=== PATIENT | male | born 1990 | race Caucasian/White ===

== ENCOUNTER 2017-01-04 12:29 | Emergency (ER) | payer SELFPAY ==
[2017-01-04] MEDS ORDERED: Benzocaine 20% Topical Spray UD MUCMEM ONE (13:00)
[2017-01-04] MEDS ORDERED: Lidocaine 2% Viscous Solution 15 ML Cup PO ONE (13:00)
--- NOTE | 2017-01-04 13:00 | EDM.PDOC ---
ED HPI GENERAL MEDICAL PROBLEM - General Chief Complaint: ENT Problem Stated Complaint: RT EAR HURTS Time Seen by Provider: 01/04/17 12:55 Source of Information: Reports: Patient History Limitations: Reports: No Limitations - History of Present Illness INITIAL COMMENTS - FREE TEXT/NARRATIVE: HISTORY AND PHYSICAL: History of present illness: Patient is a 26-year-old male presents to the emergency room today with complaints of right ear, jaw, dental pain for several days. Patient does have multiple dental caries noted which he says he does not see a dentist for but has taken antibiotics in the past. Denies any fever, chills, nausea, vomiting or abdominal pain. As any chest pain, dyspnea, or shortness of breath. Review of systems: As per history of present illness and below otherwise all systems reviewed and negative. Past medical history: As per history of present illness and as reviewed below otherwise noncontributory. Surgical history: As per history of present illness and as reviewed below otherwise noncontributory. Social history: No reported history of drug or alcohol abuse. Family history: As per history of present illness and as reviewed below otherwise noncontributory. Physical exam: Gen.: Nontoxic appearing 26-year-old male. Able to speak in full sentences without shortness of breath. Alert and oriented HEENT: Atraumatic, normocephalic, pupils reactive, negative for conjunctival pallor or scleral icterus, mucous membranes moist, throat clear, neck supple, nontender, trachea midline. Multiple dental caries noted. Erythema and swelling noted to tooth #31 through 29, with tenderness to the gumline. Lungs: Clear to auscultation, breath sounds equal bilaterally, chest nontender. Heart: S1S2, regular, negative for clicks, rubs, or JVD. Abdomen: Soft, nondistended, nontender. Negative for masses or hepatosplenomegaly. Negative for costovertebral tenderness. Pelvis: Stable nontender. Genitourinary: Deferred. Rectal: Deferred. Extremities: Atraumatic, negative for cords or calf pain. Neurovascular unremarkable. Neuro: Awake, alert, oriented. Cranial nerves II through XII unremarkable. Cerebellum unremarkable. Motor and sensory unremarkable throughout. Exam nonfocal. Diagnostics: [] Therapeutics: Dental balls Impression: Dental abscess, dental caries Plan: Please take antibiotic as prescribed. Use the dental balls that have been provided for you for discomfort. In addition please take Tylenol and/or ibuprofen for pain and discomfort. Follow-up with the dentist in the next 1-2 days. May return to the ED as needed as discussed. Definitive disposition and diagnosis as appropriate pending reevaluation and review of above. Duration: Day(s): (3) right jaw Pain Score (Numeric/FACES): 7 - Related Data Allergies Allergy/AdvReac Type Severity Reaction Status Date / Time No Known Allergies Allergy Verified 01/04/17 12:47 Home Meds: Home Meds . [No Known Home Meds] 01/04/17 [History] Past Medical History - Past Health History Medical/Surgical History: Denies Medical/Surgical History - Past Surgical History GI Surgical History: Reports: Appendectomy Social & Family History - Family History Family Medical History: Noncontributory - Tobacco Use Smoking Status *Q: Never Smoker - Recreational Drug Use Recreational Drug Use: No ED ROS GENERAL - Review of Systems Review Of Systems: ROS reveals no pertinent complaints other than HPI. ED EXAM, GENERAL - Physical Exam Exam: See Below (See dictation) Course - Vital Signs Last Recorded V/S: Last Vital Signs Temp 36.6 C 01/04/17 12:32 Pulse 65 01/04/17 12:32 Resp 18 01/04/17 12:32 BP 120/73 01/04/17 12:32 Pulse Ox 96 01/04/17 12:32 - Orders/Labs/Meds Orders: Active Orders 24 hr Category Date Time Status Benzocaine [Hurricaine One 20%] Med 01/04/17 13:00 Once 2 each MUCMEM ONETIME ONE Lidocaine 2% [Xylocaine 2% Viscous] Med 01/04/17 13:00 Once 15 ml PO ONETIME ONE Medication Orders Benzocaine (Hurricaine One 20%) 2 each MUCMEM ONETIME ONE Stop: 01/04/17 13:01 Lidocaine HCl (Xylocaine 2% Viscous) 15 ml PO ONETIME ONE Stop: 01/04/17 13:01 Meds: Medications Generic Name Dose Route Start Last Admin Trade Name Freq PRN Reason Stop Dose Admin Benzocaine 2 each 01/04/17 13:00 Hurricaine One 20% MUCMEM 01/04/17 13:01 ONETIME ONE Lidocaine HCl 15 ml 01/04/17 13:00 Xylocaine 2% Viscous PO 01/04/17 13:01 ONETIME ONE Departure - Departure Time of Disposition: 13:06 Disposition: Home, Self-Care 01 Condition: Good Clinical Impression: Dental abscess - Discharge Information Referrals: PCP,None [Primary Care Provider] - Forms: ED Department Discharge Additional Instructions: The following information is given to patients seen in the emergency department who are being discharged to home. This information is to outline your options for follow-up care. We provide all patients seen in our emergency department with a follow-up referral. The need for follow-up, as well as the timing and circumstances, are variable depending upon the specifics of your emergency department visit. If you don't have a primary care physician on staff, we will provide you with a referral. We always advise you to contact your personal physician following an emergency department visit to inform them of the circumstance of the visit and for follow-up with them and/or the need for any referrals to a consulting specialist. The emergency department will also refer you to a specialist when appropriate. This referral assures that you have the opportunity for followup care with a specialist. All of these measure are taken in an effort to provide you with optimal care, which includes your followup. Under all circumstances we always encourage you to contact your private physician who remains a resource for coordinating your care. When calling for followup care, please make the office aware that this follow-up is from your recent emergency room visit. If for any reason you are refused follow-up, please contact the [facility] emergency department at and ask to speak to the emergency department charge nurse. Primary care- Internal Medicine and Family [address] [id number] Please take antibiotic as prescribed. Use the dental balls that have been provided for you for discomfort. Please take Volteran for pain, do not take additional NSAIDs such as Ibuprofen or Aleve with this medication. In addition you may take Tylenol pain and discomfort as needed. Follow-up with the dentist in the next 1-2 days. May return to the ED as needed as discussed. - My Orders Last 24 Hours: My Active Orders 01/04/17 13:00 Benzocaine [Hurricaine One 20%] 2 each MUCMEM ONETIME ONE Lidocaine 2% [Xylocaine 2% Viscous] 15 ml PO ONETIME ONE - Assessment/Plan Last 24 Hours: My Active Orders 01/04/17 13:00 Benzocaine [Hurricaine One 20%] 2 each MUCMEM ONETIME ONE Lidocaine 2% [Xylocaine 2% Viscous] 15 ml PO ONETIME ONE
[2017-01-04 13:23] VITALS: BP 130/77
== END 2017-01-04 13:21 | disposition home or self-care (01) ==
LOC: MW.ED 12:29
DX: K04.7 Periapical abscess without sinus (principal); K02.9 Dental caries, unspecified; Z90.49 Acquired absence of other specified parts of digestive tract
CPT/HCPCS: 99282; A9270; 99283

== ENCOUNTER 2017-01-19 09:07 | Emergency (ER) | payer OTHER ==
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
[2017-01-19 10:19] VITALS: BP 124/60
== END 2017-01-19 10:10 | disposition home or self-care (01) ==
LOC: MW.ED 09:07
DX: T59.891A Toxic effect of other specified gases, fumes and vapors, accidental (unintentional), initial encounter (principal); T24.411A Corrosion of unspecified degree of right thigh, initial encounter; Z90.49 Acquired absence of other specified parts of digestive tract; Y92.69 Other specified industrial and construction area as the place of occurrence of the external cause; Y99.0 Civilian activity done for income or pay
CPT/HCPCS: 99283

== ENCOUNTER 2017-03-21 16:55 | Emergency (ER) | payer SELFPAY ==
[2017-03-21] MEDS ORDERED: cefTRIAXone 1,000 MG in Lidocaine 1% 4 ML IM ONE (18:28)
--- NOTE | 2017-03-21 18:28 | EDM.PDOC ---
ED HPI GENERAL MEDICAL PROBLEM - General Chief Complaint: ENT Problem Stated Complaint: PT HAS TOOTHACHE Time Seen by Provider: 03/21/17 18:26 Source of Information: Reports: Patient - History of Present Illness INITIAL COMMENTS - FREE TEXT/NARRATIVE: HISTORY AND PHYSICAL: History of present illness: []Patient with history of dental pain presents with 6 out of 10 pain on the right lower jaw radiating to the right ear, keeping him awake at night he has poor dentition does follow with dentist unavailable he did have 1 tooth pulled 2 months prior he has multiple teeth that need to be pulled severe decay on the right lower jawline in the molar distribution No fever nausea vomiting chills sweats no drooling, potato voice or trismus Review of systems: As per history of present illness and below otherwise all systems reviewed and negative. Past medical history: As per history of present illness and as reviewed below otherwise noncontributory. Surgical history: As per history of present illness and as reviewed below otherwise noncontributory. Social history: No reported history of drug or alcohol abuse. Family history: As per history of present illness and as reviewed below otherwise noncontributory. Physical exam: HEENT: Atraumatic, normocephalic, pupils reactive, negative for conjunctival pallor or scleral icterus, mucous membranes moist, throat clear, neck supple, nontender, trachea midline. Dentition tenderness along lower jawline consistent early abscess Lungs: Clear to auscultation, breath sounds equal bilaterally, chest nontender. Heart: S1S2, regular, negative for clicks, rubs, or JVD. Abdomen: Soft, nondistended, nontender. Negative for masses or hepatosplenomegaly. Negative for costovertebral tenderness. Pelvis: Stable nontender. Genitourinary: Deferred. Rectal: Deferred. Extremities: Atraumatic, negative for cords or calf pain. Neurovascular unremarkable. Neuro: Awake, alert, oriented. Cranial nerves II through XII unremarkable. Cerebellum unremarkable. Motor and sensory unremarkable throughout. Exam nonfocal. 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 right lower Pain Score (Numeric/FACES): 5 - Related Data Allergies Allergy/AdvReac Type Severity Reaction Status Date / Time No Known Allergies Allergy Verified 03/21/17 17:15 Home Meds: Home Meds . [No Known Home Meds] 03/21/17 [History] Past Medical History - Past Health History Medical/Surgical History: Denies Medical/Surgical History - Infectious Disease History Infectious Disease History: Reports: Mononucleosis - Past Surgical History GI Surgical History: Reports: Appendectomy Social & Family History - Family History Family Medical History: Noncontributory - Tobacco Use Smoking Status *Q: Never Smoker Second Hand Smoke Exposure: No - Caffeine Use Caffeine Use: Reports: Soda Caffeine Use Comment: 2-3drinks each/day - Recreational Drug Use Recreational Drug Use: No ED ROS GENERAL - Review of Systems Review Of Systems: ROS reveals no pertinent complaints other than HPI. ED EXAM, GENERAL - Physical Exam Exam: See Below Course - Vital Signs Last Recorded V/S: Last Vital Signs Temp 100.0 F 03/21/17 17:16 Pulse 95 03/21/17 17:16 Resp 18 03/21/17 17:16 BP 125/65 03/21/17 17:16 Pulse Ox 96 03/21/17 17:16 - Orders/Labs/Meds Orders: Active Orders 24 hr Category Date Time Status cefTRIAXone [Rocephin] 1,000 mg Med 03/21/17 18:28 Ordered Lidocaine 1% [Xylocaine-MPF 1%] 4 ml IM ONETIME Departure - Departure Time of Disposition: 18:28 Disposition: Home, Self-Care 01 Condition: Good Clinical Impression: Pain, dental - Discharge Information Referrals: PCP,None [Primary Care Provider] - Forms: ED Department Discharge Additional Instructions: Medication as prescribed Follow-up with dentist tomorrow as planned The following information is given to patients seen in the emergency department who are being discharged to home. This information is to outline your options for follow-up care. We provide all patients seen in our emergency department with a follow-up referral. The need for follow-up, as well as the timing and circumstances, are variable depending upon the specifics of your emergency department visit. If you don't have a primary care physician on staff, we will provide you with a referral. We always advise you to contact your personal physician following an emergency department visit to inform them of the circumstance of the visit and for follow-up with them and/or the need for any referrals to a consulting specialist. The emergency department will also refer you to a specialist when appropriate. This referral assures that you have the opportunity for follow-up care with a specialist. All of these measure are taken in an effort to provide you with optimal care, which includes your follow-up. Under all circumstances we always encourage you to contact your private physician who remains a resource for coordinating your care. When calling for follow-up care, please make the office aware that this follow-up is from your recent emergency room visit. If for any reason you are refused follow-up, please contact the [facility] emergency department at and asked to speak to the emergency department charge nurse. - My Orders Last 24 Hours: My Active Orders 03/21/17 18:28 cefTRIAXone [Rocephin] 1,000 mg Lidocaine 1% [Xylocaine-MPF 1%] 4 ml IM ONETIME - Assessment/Plan Last 24 Hours: My Active Orders 03/21/17 18:28 cefTRIAXone [Rocephin] 1,000 mg Lidocaine 1% [Xylocaine-MPF 1%] 4 ml IM ONETIME
[2017-03-21 19:00] VITALS: BP 119/63
== END 2017-03-21 19:02 | disposition home or self-care (01) ==
LOC: MW.ED 16:55
DX: K04.7 Periapical abscess without sinus (principal)
CPT/HCPCS: 96372; 99282; J0696; 99281

== ENCOUNTER 2017-04-03 03:58 | Emergency (ER) | payer SELFPAY ==
--- NOTE | 2017-04-03 04:09 | EDM.PDOC ---
ED HPI GENERAL MEDICAL PROBLEM - General Chief Complaint: Upper Extremity Injury/Pain Stated Complaint: FELL AND HURT LEFT ARM Time Seen by Provider: 04/03/17 04:06 - History of Present Illness INITIAL COMMENTS - FREE TEXT/NARRATIVE: 27 year old male presents to ED after injuring his left elbow. Injury occurred 3 hours ago. Patient was in shower and fell. He is unable to recall exact mechanism of injury. He did not have LOC. Immediately after the fall he felt severe pain and noticed a buldge at his left elbow. His girlfriend brought him to the ED who is here with him now. He denies any pain in his left hand, left wrist or left shoulder. left elbow Pain Score (Numeric/FACES): 10 - Related Data Allergies Allergy/AdvReac Type Severity Reaction Status Date / Time No Known Allergies Allergy Verified 04/03/17 04:09 Home Meds: Home Meds . [No Known Home Meds] 03/21/17 [History] Past Medical History - Past Health History Medical/Surgical History: Denies Medical/Surgical History - Infectious Disease History Infectious Disease History: Reports: Mononucleosis - Past Surgical History GI Surgical History: Reports: Appendectomy Social & Family History - Family History Family Medical History: Noncontributory - Tobacco Use Smoking Status *Q: Never Smoker Second Hand Smoke Exposure: No - Caffeine Use Caffeine Use: Reports: Soda Caffeine Use Comment: 2-3drinks each/day - Recreational Drug Use Recreational Drug Use: No Review of Systems - Review of Systems Review Of Systems: See Below Constitutional: Reports: No Symptoms Eyes: Reports: No Symptoms Ears: Reports: No Symptoms Nose: Reports: No Symptoms Mouth/Throat: Reports: No Symptoms Respiratory: Reports: No Symptoms Cardiovascular: Reports: No Symptoms GI/Abdominal: Reports: No Symptoms Genitourinary: Reports: No Symptoms Musculoskeletal: Reports: Joint Pain, Joint Swelling Skin: Reports: No Symptoms Neurological: Reports: No Symptoms Psychiatric: Reports: No Symptoms ED EXAM, GENERAL - Physical Exam Exam: See Below Exam Limited By: No Limitations General Appearance: Alert, WD/WN, No Apparent Distress Nose: Normal Inspection, Normal Mucosa, No Blood Throat/Mouth: Normal Inspection, Normal Lips, Normal Teeth, Normal Gums, Normal Oropharynx, Normal Voice, No Airway Compromise Head: Atraumatic, Normocephalic Neck: Normal Inspection, Supple, Non-Tender, Full Range of Motion Respiratory/Chest: No Respiratory Distress, Lungs Clear, Normal Breath Sounds Cardiovascular: Normal Peripheral Pulses, Regular Rate, Rhythm GI/Abdominal: Normal Bowel Sounds, Soft, Non-Tender, No Distention Back Exam: Normal Inspection, Full Range of Motion Extremities: Other (Left Elbow: significant swelling at left elbow joint, sever pain and tenderness, restricted ROM. Left Hand/Wrist/Shoulder: wnl ) Neurological: Alert, Oriented, CN II-XII Intact, Normal Cognition, Normal Gait, Normal Reflexes, No Motor/Sensory Deficits Psychiatric: Normal Affect, Normal Mood Skin Exam: Warm, Dry, Intact Lymphatic: No Adenopathy Course - Vital Signs Last Recorded V/S: Last Vital Signs Temp 36.7 C 04/03/17 04:10 Pulse 76 04/03/17 04:10 Resp 18 04/03/17 04:10 BP 136/87 04/03/17 04:10 Pulse Ox 98 04/03/17 04:10 - Orders/Labs/Meds Orders: Active Orders 24 hr Category Date Time Status Elbow 2V Lt [CR] Stat Exams 04/03/17 04:17 Taken Meds: Medications Discontinued Medications Generic Name Dose Route Start Last Admin Trade Name Freq PRN Reason Stop Dose Admin Morphine Sulfate 1 mg 04/03/17 04:16 04/03/17 04:35 Morphine IVPUSH 04/03/17 04:17 1 mg ONETIME ONE Administration Departure - Departure Time of Disposition: 05:10 Disposition: Home, Self-Care 01 Condition: Good Clinical Impression: Olecranon bursitis, left elbow - Discharge Information Instructions: Elbow Bursitis, [id number], Elbow Bursitis With Rehab-SportsMed Referrals: PCP,None [Primary Care Provider] - Mely Dillon MD [Physician] - 3 Days (f/u with ortho on wednesday ) Forms: ED Department Discharge Additional Instructions: The following information is given to patients seen in the emergency department who are being discharged to home. This information is to outline your options for follow-up care. We provide all patients seen in our emergency department with a follow-up referral. The need for follow-up, as well as the timing and circumstances, are variable depending upon the specifics of your emergency department visit. If you don't have a primary care physician on staff, we will provide you with a referral. We always advise you to contact your personal physician following an emergency department visit to inform them of the circumstance of the visit and for follow-up with them and/or the need for any referrals to a consulting specialist. The emergency department will also refer you to a specialist when appropriate. This referral assures that you have the opportunity for followup care with a specialist. All of these measure are taken in an effort to provide you with optimal care, which includes your followup. Under all circumstances we always encourage you to contact your private physician who remains a resource for coordinating your care. When calling for followup care, please make the office aware that this follow-up is from your recent emergency room visit. If for any reason you are refused follow-up, please contact the [facility] emergency department at and asked to speak to the emergency department charge nurse. - Problem List Review Problem List Initiated/Reviewed/Updated: Yes - My Orders Last 24 Hours: My Active Orders 04/03/17 04:17 Elbow 2V Lt [CR] Stat - Assessment/Plan Last 24 Hours: My Active Orders 04/03/17 04:17 Elbow 2V Lt [CR] Stat Plan: Diagnostics: XR Left Elbow Therapeutics: Morphine 1 mg IV single dose Assessment: Olecranon Bursitis, left Plan: 1. Avoid excessive use of elbow until cleared by orthopedic surgery - patent given work excuse 2. Ibuprofen as needed for pain control 3. follow-up with orthopedic surgery on Wednesday
[2017-04-03] MEDS ORDERED: Morphine 2 MG/ML Syringe IVPUSH ONE (04:16)
[2017-04-03 05:36] VITALS: BP 128/64
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
== END 2017-04-03 05:32 | disposition home or self-care (01) ==
LOC: MW.ED 03:58
DX: M70.22 Olecranon bursitis, left elbow (principal); W19.XXXA Unspecified fall, initial encounter
CPT/HCPCS: 73070; 96374; 99283; A4566; J2270; 99282

== ENCOUNTER 2019-01-01 21:39 | Emergency (ER) | payer OTHER ==
[2019-01-01] MEDS ORDERED: Morphine 2 MG/ML Syringe IVPUSH ONE (21:43)
[2019-01-01] MEDS ORDERED: Sodium Chloride 0.9% 1,000 ML IV ONE (21:43)
[2019-01-01] MEDS ORDERED: Diphtheria,Pertussis(Acell),Tetanus Vaccine 0.5 ML Syringe IM ONE (21:47)
[2019-01-01] MEDS ORDERED: Iopamidol 755 Mg/ML 100 ML Bottle IVPUSH ONE (22:26)
[2019-01-01] MEDS ORDERED: Ondansetron 4 MG/2 ML SDV ONE (22:36)
[2019-01-01] MEDS ORDERED: Ondansetron 4 MG/2 ML SDV IVPUSH ONE (22:39)
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
[2019-01-01] MEDS ORDERED: Bacitracin Oint 1 GM U/D Packet TOP ONE (22:49)
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
[2019-01-01 23:10] LABS: BLOOD UREA NITROGEN,BUN 15 mg/dL (7.0-18.0); CHLORIDE,CL 106 mmol/L (98-107); GLUCOSE RANDOM 101 mg/dL (74-106); POTASSIUM,K 3.7 mmol/L (3.5-5.1); SODIUM,NA 142 mmol/L (136-148)
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
[2019-01-02 01:44] VITALS: BP 108/55
== END 2019-01-02 01:00 | disposition home or self-care (01) ==
LOC: MW.ED 21:39
DX: S22.32XA Fracture of one rib, left side, initial encounter for closed fracture (principal); Z23 Encounter for immunization; V86.09XA Driver of other special all-terrain or other off-road motor vehicle injured in traffic accident, initial encounter
CPT/HCPCS: 36415; 70450; 71045; 71260; 72125; 72170; 74177; 80053; 80305; 80320; 81001; 82550; 85025; 85610; 86850; 86900; 86901; 90471; 90715; 96361; 96374; 96375; 99284; J2270; J2405; J7040; Q9967; G0480

== ENCOUNTER 2021-01-05 21:25 | Emergency (ER) | payer OTHER ==
[2021-01-06] MEDS ORDERED: Piperacillin/Tazobactam 3.375 GM in Sodium Chloride 0.9% 50 ML IV ONE ×2 (00:08→05:34)
[2021-01-06] MEDS ORDERED: Ondansetron 4 MG/2 ML SDV IVPUSH ONE (00:10)
[2021-01-06] MEDS ORDERED: fentaNYL 50 MCG/ML SDV IVPUSH ONE (00:10)
--- NOTE | 2021-01-06 01:13 | EDM.PDOC ---
ED HPI GENERAL MEDICAL PROBLEM - General Chief Complaint: Genitourinary Problem Stated Complaint: DOG BITE Time Seen by Provider: 01/06/21 00:02 - History of Present Illness INITIAL COMMENTS - FREE TEXT/NARRATIVE: HISTORY AND PHYSICAL: History of present illness: This is a 30-year-old gentleman with no significant past medical history who presents to the ER today secondary to injury to his penis. 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 When the door was opened the dog came out and bit him in the penis. Patient has been having pain and discomfort and blood from his meatus since. Patient's tetanus status is up-to-date. Td given in 2019 here at [place]. Patient denies any other symptomatology or injury. Review of systems: As per history of present illness and below otherwise all systems reviewed and negative. Past medical history: As per history of present illness and as reviewed below otherwise noncontributory. Surgical history: As per history of present illness and as reviewed below otherwise noncontributory. Social history: No reported history of drug abuse. Family history: As per history of present illness and as reviewed below otherwise noncontributory. Physical exam: This patient was seen and evaluated during the 2019 SARS-CoV-2 novel coronavirus pandemic period. Community viral transmission is ongoing at time of this encounter and the emergency department is operating under pandemic response procedures. Constitutional: Patient is oriented to person, place, and time. Appears well- developed and well-nourished. No distress. HEENT: Moist mucous membranes Head: Normocephalic and atraumatic Eyes: Right eye exhibits no discharge. Left eye exhibits no discharge. No scleral icterus Neck: Normal range of motion. No tracheal deviation present. Cardiovascular: Normal rate and regular rhythm. Pulmonary: Effort normal, no respiratory distress. Abdominal: No distention Musculoskeletal: Normal range of motion Neurologic: Alert and oriented to person, place and time. Skin: [place], warm and dry. Psychiatric: Normal mood and affect. Behavior is normal. Judgment and thought content normal. Nursing note and vital signs have been reviewed Patient's ER physical exam is significant for 2 small puncture wounds at the volar aspect of his penis in the midshaft. Patient has blood at the urethral meatus expressed without any injury identified. Diagnostics: CBC, CMP, Covid Therapeutics: Zosyn 3.375 Fentanyl 75 mg IV, Zofran Assessment and plan: 30-year-old gentleman who presents ER today secondary to injury to his penis from a dog bite. Patient does have blood at the meatus with injury to the volar aspect of his penis consistent with a dog bite. Case has been discussed with [facility]. No bed availability to accept patient for transfer. Case was discussed with Agustinjonathan Ayala, urology reports that this is not something he would be able to manage given that might need more specialized care than he is able to afford. He recommended trying a different facility. [facility] contacted, they do not have any bed availability to accept any transfers secondary to Covid. Case discussed with Dr. Elizabeth at [facility] and she has agreed to assist with care of this patient. I have discussed the case with Dr. Mccormick in the emergency department who is agreed to except patient for transfer. I have discussed with the patient and he is in agreement with the current plan to transfer to [facility] for definitive management and need for retrograde urethrogram. Definitive disposition and diagnosis as appropriate pending reevaluation and review of above. Penis Pain Score (Numeric/FACES): 10 - Related Data Allergies Allergy/AdvReac Type Severity Reaction Status Date / Time No Known Allergies Allergy Verified 01/02/19 00:05 Home Meds: Home Meds . [No Known Home Meds] 03/21/17 [History] Past Medical History - Past Health History Medical/Surgical History: Denies Medical/Surgical History HEENT History: Reports: None Cardiovascular History: Reports: None Respiratory History: Reports: None Gastrointestinal History: Reports: None Genitourinary History: Reports: None Musculoskeletal History: Reports: None Neurological History: Reports: None Psychiatric History: Reports: None Endocrine/Metabolic History: Reports: None Insulin Pump Model and Chicken Hanger: N/A Hematologic History: Reports: None Immunologic History: Reports: None Oncologic (Cancer) History: Reports: None Dermatologic History: Reports: None - Infectious Disease History Infectious Disease History: Reports: Mononucleosis - Past Surgical History Head Surgeries/Procedures: Reports: None GI Surgical History: Reports: Appendectomy Male Surgical History: Reports: None Social & Family History - Family History Family Medical History: No Pertinent Family History - Tobacco Use Tobacco Use Status *Q: Never Tobacco User - Caffeine Use Caffeine Use: Reports: None Caffeine Use Comment: 2-3drinks each/day - Recreational Drug Use Recreational Drug Use: No ED ROS GENERAL - Review of Systems Review Of Systems: See Below ED EXAM, GENERAL - Physical Exam Exam: See Below Course - Vital Signs Last Recorded V/S: Last Vital Signs Temp 98.9 F 01/05/21 22:46 Pulse 60 01/06/21 00:42 Resp 16 01/06/21 00:42 BP 131/61 01/06/21 00:42 Pulse Ox 94 L 01/06/21 00:42 - Orders/Labs/Meds Orders: Active Orders 24 hr Category Date Time Status CBC WITH AUTO DIFF [HEME] Stat Lab 01/06/21 01:05 Ordered COMPREHENSIVE METABOLIC PN,CMP [CHEM] Stat Lab 01/06/21 01:05 Ordered CORONAVIRUS COVID-19 JEFF [MOLEC] Stat Lab 01/06/21 00:54 Ordered Meds: Medications Discontinued Medications Generic Name Dose Route Start Last Admin Trade Name Freq PRN Reason Stop Dose Admin Fentanyl 100 mcg 01/06/21 00:10 01/06/21 00:23 Fentanyl 50 Mcg/Ml Sdv IVPUSH 01/06/21 00:11 100 mcg ONETIME ONE Administration Piperacillin Sod/Tazobactam 50 mls @ 100 mls/hr 01/06/21 00:08 01/06/21 00:22 Sod 3.375 gm/ Sodium Chloride IV 01/06/21 00:37 100 mls/hr ONETIME ONE Administration Ondansetron HCl 4 mg 01/06/21 00:10 01/06/21 00:20 Ondansetron 4 Mg/2 Ml Sdv IVPUSH 01/06/21 00:11 4 mg ONETIME ONE Administration Departure - Departure Time of Disposition: 01:12 Disposition: DC/Tfer to Acute Hospital 02 Condition: Good Clinical Impression: Dog bite, Urethral injury, open - Discharge Information Referrals: PCP,None [Primary Care Provider] - Sepsis Event Note (ED) - Focused Exam Vital Signs: Vital Signs Temp Pulse Resp BP Pulse Ox 01/06/21 00:42 60 16 131/61 94 L 01/05/21 22:46 98.9 F 68 18 134/73 96 - My Orders Last 24 Hours: My Active Orders 01/06/21 00:54 CORONAVIRUS COVID-19 JEFF [MOLEC] Stat 09/06/21 01:05 CBC WITH AUTO DIFF [HEME] Stat COMPREHENSIVE METABOLIC PN,CMP [CHEM] Stat - Assessment/Plan Last 24 Hours: My Active Orders 01/06/21 00:54 CORONAVIRUS COVID-19 JEFF [MOLEC] Stat 01/06/21 01:05 CBC WITH AUTO DIFF [HEME] Stat COMPREHENSIVE METABOLIC PN,CMP [CHEM] Stat
[2021-01-06 02:58] LABS: BLOOD UREA NITROGEN,BUN 11 mg/dL (7.0-18.0); CARBON DIOXIDE,CO2 27.6 mmol/L (21.0-32.0); CHLORIDE,CL 102 mmol/L (98-107); GLUCOSE RANDOM 76 mg/dL (74-106); POTASSIUM,K 3.7 mmol/L (3.5-5.1); SODIUM,NA 139 mmol/L (136-148)
[2021-01-06 07:17] VITALS: BP 120/74; PULSE 58
== END 2021-01-06 07:18 ==
LOC: MW.ED 21:25
DX: S31.25XA Open bite of penis, initial encounter (principal); Z20.822 Contact with and (suspected) exposure to COVID-19; W54.0XXA Bitten by dog, initial encounter
CPT/HCPCS: 36415; 80053; 85025; 87635; 96365; 96366; 96375; 99284; J2405; J2543; J3010; U0002

== ENCOUNTER 2024-04-07 11:52 | Day surgery (SDC) | payer BC, OTHER ==
[2024-04-07] MEDS: Lactated Ringers 1,000 ML IV SCH (12:35)
[2024-04-07] MEDS ORDERED: Propofol 200 MG/20 ML SDV ONE ×3 (12:51→13:17)
[2024-04-07] MEDS ORDERED: Lidocaine 2% 5 ML SDV ONE (12:51)
[2024-04-07] MEDS ORDERED: Midazolam 1 MG/ML 2 ML SDV ONE (13:11)
[2024-04-07] MEDS ORDERED: Lactated Ringers 1,000 ML IV SCH (13:45)
[2024-04-07 14:31] VITALS: BP 137/81; PULSE 78
== END 2024-04-07 14:45 | disposition home or self-care (01) ==
LOC: MW.SDS 11:52
PROVIDERS: ATTEND Surgery
DX: K21.00 Gastro-esophageal reflux disease with esophagitis, without bleeding (principal); K44.9 Diaphragmatic hernia without obstruction or gangrene; Z87.891 Personal history of nicotine dependence
CPT/HCPCS: 43239; J2250; J2704; J7120; 00731; J3490